=== PATIENT | female | born 1985 | race African-American/Black ===

== ENCOUNTER 2016-07-20 14:33 | Emergency (ER) | payer OTHER ==
[~2016-07-20] VITALS: Ht 162.6 cm; Wt 136.1 kg
[~2016-07-20 14:33] MED LIST: CLINDAMYCIN HY300 MG PO; MACROBID 100 M100 MG PO; MOTRIN800 MG PO
[2016-07-20 14:48] VITALS: BP 130/90
--- NOTE | 2016-07-20 16:03 | ED GENERAL ADULT ---
History of Present Illness General Chief Complaint: Abdominal Pain/Flank Pain Stated Complaint: ABDN PAIN Source: patient Exam Limitations: no limitations Vital Signs & Intake/Output Vital Signs & Intake/Output Vital Signs Date Time Temp Pulse Resp B/P Pulse O2 O2 Flow FiO2 Ox Delivery Rate 07/20 1448 99.7 96 20 130/90 98 Room Air Allergies Coded Allergies: Penicillins (Intermediate, HIVES, TOLD BY MOM NOT TO TAKE 03/07/16) Reconcile Medications Ibuprofen 800 MG TABLET 800 MG PO TID abdominal pain Triage Note: PT TO ED C/O ABD CRAMPING X 2 HOURS. DENIES MENSES. C/O NAUSEA, DENIES V/D. DENIES S/S. : No Patient currently breastfeeds: No HPI: Pt is a 31 yo lady with a PMHx of Chlamydia (In ) presents with complaints of sudden onset abdominal pain right after sexual intercourse. Pt reports that while walking to the bathroom right after having intercourse, she felt a sharp/stabbing pain around his upper and lower abdominal area, pain rated 10/10. She does deny any flank pain, vaginal o pelvic pain. She reports that her sexual partner has not changed, but reports not using condoms. Associated symptoms include nausea but no vomiting, chills or fevers. Pt does not uses OCs. Pt does have a history of irregular menstrual cycle, LMP in May lasting 1-2 days. Pt denies any chest pain,palpitation, dizziness, shortness of breath, dysruia, hematuria. (HENRY MORAN MD) Triage Nurses Notes Reviewed? yes (GLENN THOMPSON MD) Past History Travel History Traveled to [place] past 21 day No Medical History Neurological: NONE EENT: NONE Cardiovascular: NONE Respiratory: NONE Gastrointestinal: NONE Hepatic: NONE Renal: NONE Musculoskeletal: NONE Psychiatric: NONE Endocrine: NONE Blood Disorders: NONE Cancer(s): NONE RUFFLER/Reproductive: NONE Surgical History Surgical History: N Psychosocial History What is your primary language Mosotho Tobacco Use: Never used ETOH Use: denies use Illicit Drug Use: denies illicit drug use (HENRY MORAN MD) Medical History Any Pertinent Medical History? see below for history Family History Hx Contributory? No (GLENN THOMPSON MD) Review of Systems Review of Systems Constitutional: Reports: no symptoms. EENTM: Reports: no symptoms. Respiratory: Reports: no symptoms. Cardiovascular: Reports: no symptoms. GI: Reports: no symptoms. Genitourinary: Reports: see HPI. Musculoskeletal: Reports: no symptoms. Skin: Reports: no symptoms. Neurological/Psychological: Reports: no symptoms. Hematologic/Endocrine: Reports: no symptoms. Immunologic/Allergic: Reports: no symptoms. All Other Systems: Reviewed and Negative (GLENN THOMPSON MD) Physical Exam Physical Exam General Appearance: well developed/nourished, alert Head: atraumatic, normal appearance Eyes: Bilateral: PERRL. Ears, Nose, Throat: normal pharynx Neck: normal inspection Respiratory: normal breath sounds, no respiratory distress Cardiovascular: regular rate/rhythm Gastrointestinal: normal bowel sounds, soft, non-tender, no organomegaly Back: normal inspection, normal range of motion Extremities: normal inspection, normal capillary refill Neurologic/Psych: awake, alert, oriented x 3 Comments: Pelvic exam was unremarkable for any discharge or cervical motion tenderness. (DEAN LOPEZ,HENRY) Physical Exam Peripheral Pulses: 4+ carotid (R), 4+ carotid (L) Reflexes: 2+: bicep (R), bicep (L). Skin: intact, normal color, warm/dry Lymphatic: no anterior cervical [place] Core Measures ACS in differential dx? No CVA/TIA Diagnosis: No Severe Sepsis Present: No Septic Shock Present: No (GLENN THOMPSON MD) Progress Differential Diagnoses I considered the following diagnoses in my evaluation of the patient: ovarian cyst, ovarian torsion,PID, endometriosis,cystitis/pyelonephritis. Plan of Care: Orders Procedure Date/time Status TRICHOMONAS 07/20 1636 Active POTASSIUM HYDROXIDE (ABRAM) 07/20 1636 Active GENITAL CULTURE 07/20 1636 Active CHLAMYDIA-GC DNA PROBE 07/20 1615 Active URINE 07/20 1553 Complete Laboratory Tests 07/20/16 1610: Urine Test NEGATIVE 07/20/16 1542: Total Beta HCG Cancelled Microbiology 07/20 1700 GENITAL: ABRAM Preparation - RECD 07/20 170 GENITAL: Trichomonas Preparation - RECD 07/20 170 GENITAL: Genital Culture - RECD 07/20 170 GENITAL: GC DNA Probe - RECD 07/20 170 GENITAL: Chlamydia DNA Probe (BEAU) - RECD Initial ED EKG: none Comments: Pt pain significantly reduced after Toradol IM 60 mg. (DEAN LOPEZHENRY) Differential Diagnoses I considered the following diagnoses in my evaluation of the patient: (GLENN THOMPSON MD) Departure Departure Time of Disposition: 1718 Disposition: HOME OR SELF CARE Condition: Stable Clinical Impression Primary Impression: Dyspareunia Referrals: [facility] Additional Instructions: Please follow up with the primary care referral within 1 week. Please seek immediate medical attention if your abdominal pain perists longer or gets worse. Departure Forms: Customer Survey General Discharge Information Prescriptions: Current Visit Scripts Ibuprofen 800 MG PO TID #30 Comments Pt offered PCP referral. Registrar informed and inputed [facility] info for call back per [facility]. Pt also given [facility] faculty pamphlet with contact info. (HENRY MORAN MD) Resident Co-Sign Statement Statement: ED Attending supervision documentation- x I saw and evaluated the patient. I have also reviewed all the pertinent lab results and diagnostic results. I agree with the findings and the plan of care as documented in the Resident's documentation. [] I have reviewed the ED Record and agree with the Resident's documentation. [] Additions or exceptions (if any) to the Resident's note and plan are summarized below: [] (GLENN THOMPSON MD) Critical Care Note Critical Care Note Critical Care Time: non-applicable (HENRY MORAN MD)
[2016-07-20] MEDS ORDERED: IBUPROFEN800 M1 PO (17:15)
== END 2016-07-20 17:31 ==
LOC: ERH 14:33
DX: N94.10 Unspecified dyspareunia (principal)
CPT/HCPCS: 87070; 81025; 87147; 87491; 87591; 96372; J1885

== ENCOUNTER 2016-09-11 19:32 | Emergency (ER) | payer OTHER ==
[~2016-09-11 19:32] MED LIST changes: +IBUPROFEN800 M1 PO
[2016-09-11] MEDS ORDERED: ZOFRAN ODT4 M1 SL (21:54)
[2016-09-11] MEDS ORDERED: TESSALON PERLE100 M1 PO (21:54)
[2016-09-11] MEDS ORDERED: AZITHROMYCIN250 M1 PO (21:54)
[2016-09-11] MEDS ORDERED: magic mouthwash PO (21:54)
--- NOTE | 2016-09-11 21:54 | ED INFLUENZA/URI COMPLAINT ---
History of Present Illness General Chief Complaint: General Adult Stated Complaint: "I THINK I HAVE THE FLU" Source: patient Exam Limitations: no limitations Vital Signs & Intake/Output Vital Signs & Intake/Output Vital Signs Date Time Temp Pulse Resp B/P Pulse O2 O2 Flow FiO2 Ox Delivery Rate 09/11 2158 102.5 108 18 129/80 98 Room Air 09/11 2000 101.1 122 26 131/79 97 Allergies Coded Allergies: Penicillins (Intermediate, HIVES, TOLD BY MOM NOT TO TAKE 03/07/16) Triage Note: PER PT FEEL HORRIBLE SINCE LAST NIGHT, SORE THROAT BODY ACHES LAST ES TYLENOL 12 NOON. Triage Nurses Notes Reviewed? yes : No Patient currently breastfeeds: No HPI: This patient is a 31-year-old female who presented to the emergency department today for evaluation of upper respiratory complaints. She reported that a couple weeks ago she started developing a cough and runny nose. She reported that her cough has persisted and is intermittently productive. She denied any hemoptysis. She reported that she has body aches and chills. She also reported sore throat and vomiting 2 today with associated nausea. No abdominal pain, chest pain, or difficulty breathing. She is reporting a headache currently. (SELINA GREWAL,KAYLYNN) Reconcile Medications Azithromycin 250 MG TABLET 1 DP PO AD 2 the first day followed by 1 for days 2-5 Benzonatate (Tessalon Perle) 100 MG CAPSULE 1 CAP PO TID PRN cough Ibuprofen 800 MG TABLET 1 TAB PO TID PRN FEVER Ibuprofen 800 MG TABLET 800 MG PO TID abdominal pain [magic mouthwash] 15 ML ORAL.SUSP 2 TSP PO TID PRN SORE THROAT SWISH AND SWALLOW 1/3 BENADRYL 1/3 LIDOCAINE 1/3 MAALOX Ondansetron (Zofran Odt) 4 MG TAB.RAPDIS 1 TAB SL TID PRN nausea (DONNA LOPEZ,GLENN) Past History Travel History Traveled to [place] past 21 day No Medical History Any Pertinent Medical History? see below for history Neurological: NONE EENT: NONE Cardiovascular: NONE Respiratory: NONE Gastrointestinal: NONE Hepatic: NONE Renal: NONE Musculoskeletal: NONE Psychiatric: NONE Endocrine: NONE Blood Disorders: NONE Cancer(s): NONE PCB DESIGN ENGINEER/Reproductive: NONE Surgical History Surgical History: N Psychosocial History What is your primary language Romansh Tobacco Use: Never used Family History Hx Contributory? No (KAYLYNN MARKS PA-C) Review of Systems Review of Systems Constitutional: Reports: see HPI. EENTM: Reports: see HPI. Respiratory: Reports: see HPI. Cardiovascular: Reports: no symptoms. GI: Reports: see HPI. Genitourinary: Reports: no symptoms. Musculoskeletal: Reports: no symptoms. Skin: Reports: no symptoms. Neurological/Psychological: Reports: no symptoms. All Other Systems: Reviewed and Negative (KAYLYNN MARKS PA-C) Physical Exam Physical Exam Ears, Nose, Throat: nasal congestion, moist mucous membranes, pharyngeal injection with no oral pharyngeal lesions or edema, no tonsillar exudates, no uvular shift, no trismus or drooling Comments: Well-developed well-nourished person in no acute distress HEENT: PERRLA Neck: Supple, no lymphadenopathy Back: Normal gait Cardiovascular: Regular rate and rhythms no murmurs, normal JVP Respiratory: No respiratory distress. Breath sounds clear to auscultation bilaterally Abdomen: Soft, nontender and nondistended Extremity: Normal and equal pulses. Neuro: Alert oriented x3, cranial nerves II through XII grossly intact. Skin: No appreciable rash on exposed skin, skin is warm and dry. Psych: Mood and affect is normal, memory and judgment is normal. Core Measures Severe Sepsis Present: No Septic Shock Present: No (KAYLYNN MARKS PA-C) Progress Differential Diagnosis: influenza, meningitis, neutropenia, otitis, pneumonia, pharyngitis, sinusitis Initial ED EKG: none (KAYLYNN MARKS PA-C) Plan of Care: Orders Procedure Date/time Status THROAT CULTURE W/QUICK STREP 09/11 2049 Active RAPID VIRAL INFLUENZA A 09/11 2001 Complete Microbiology 09/12 1999 NASOPHARYN: Influenza Virus A & B Rapid Smear - COMP Departure Departure Disposition: HOME OR SELF CARE Condition: Stable Clinical Impression Primary Impression: Viral syndrome Referrals: PATIENT HAS NO PRIMARY CARE DR (PCP/Family) Additional Instructions: Take Zofran as prescribed for nausea. Take Tessalon Perles as prescribed for cough. Use Magic mouthwash as directed: Swish and swallow. Take antibiotic as prescribed and for its full duration. Please return to the emergency department for any worsening symptoms or concerns. Rest and be sure to stay hydrated. Departure Forms: Customer Survey General Discharge Information Prescriptions: Current Visit Scripts Ondansetron (Zofran Odt) 1 TAB SL TID PRN nausea #10 TAB Benzonatate (Tessalon Perle) 1 CAP PO TID PRN cough #12 CAP Azithromycin 1 DP PO AD #6 TAB 2 the first day followed by 1 for days 2-5 [magic mouthwash] 2 TSP PO TID PRN SORE THROAT #150 ML SWISH AND SWALLOW 1/3 BENADRYL 1/3 LIDOCAINE 1/3 MAALOX Ibuprofen 1 TAB PO TID PRN FEVER #30 TAB (SELINA GREWAL,KAYLYNN) PA/PLANT MECHANIC Co-Sign Statement Statement: ED Attending supervision documentation- [] I saw and evaluated the patient. I have also reviewed all the pertinent lab results and diagnostic results. I agree with the findings and the plan of care as documented in the PA's/PLANT MECHANIC's documentation. x I have reviewed the ED Record and agree with the PA's/PLANT MECHANIC's documentation. [] Additions or exceptions (if any) to the PAs/PLANT MECHANIC's note and plan are summarized below: [] (DONNA LOPEZ,GLENN)
[2016-09-11 21:59] VITALS: BP 129/80
[2016-09-11] MEDS ORDERED: IBUPROFEN800 M1 PO (22:06)
== END 2016-09-11 22:24 ==
LOC: ERH 19:32
DX: B34.9 Viral infection, unspecified (principal)
CPT/HCPCS: 87804; 87804-59; J3101

== ENCOUNTER 2016-12-20 14:44 | Emergency (ER) | payer OTHER ==
[~2016-12-20] VITALS: Ht 162.6 cm; Wt 136.1 kg
[~2016-12-20 14:44] MED LIST changes: +AZITHROMYCIN250 M1 PO; +TESSALON PERLE100 M1 PO; +ZOFRAN ODT4 M1 SL; +magic mouthwash PO
--- NOTE | 2016-12-20 16:20 | ED UPPER/LOWER EXTREMITY COMPL ---
History of Present Illness General Chief Complaint: Lower Extremity Injury Stated Complaint: LEFT ANKLE PAIN Source: patient Exam Limitations: no limitations Vital Signs & Intake/Output Vital Signs & Intake/Output Vital Signs Date Time Temp Pulse Resp B/P B/P Pulse O2 O2 Flow FiO2 Mean Ox Delivery Rate 12/20 1640 88 148/90 12/20 1450 98.7 90 18 147/81 98 Room Air Allergies Coded Allergies: Penicillins (Intermediate, HIVES, TOLD BY MOM NOT TO TAKE 03/07/16) Reconcile Medications Azithromycin 250 MG TABLET 1 DP PO AD 2 the first day followed by 1 for days 2-5 Benzonatate (Tessalon Perle) 100 MG CAPSULE 1 CAP PO TID PRN cough Ibuprofen 800 MG TABLET 1 TAB PO TID PRN pain Ibuprofen 800 MG TABLET 1 TAB PO TID PRN FEVER Ibuprofen 800 MG TABLET 800 MG PO TID abdominal pain [magic mouthwash] 15 ML ORAL.SUSP 2 TSP PO TID PRN SORE THROAT SWISH AND SWALLOW 1/3 BENADRYL 1/3 LIDOCAINE 1/3 MAALOX Ondansetron (Zofran Odt) 4 MG TAB.RAPDIS 1 TAB SL TID PRN nausea Oxycodone HCl/Acetaminophen (Percocet 5-325 MG Tablet) 5 MG-325 MG TABLET 1 TAB PO BID PRN pain Triage Note: PT TO TRIAGE WITH C/O LEFT ANKLE/MOODY PAIN 10/10 S/P TRIPPED AND FELL LAST NIGHT. HX OF LEFT LE FRACTURE AND SURGERY 4 YEARS AGO. ICE PACK PROVIDED. PT REFUSED PAIN MEDS IN TRIAGE. Triage Nurses Notes Reviewed? yes Onset: Abrupt Duration: day(s): Timing: yesterday Severity: severe Severity Numbers: 10 Pain/Injury Location: Left: Knee, Ankle. Method of Injury: fall Modifying Factors: Worsens With: movement. : No Patient currently breastfeeds: No HPI: 31yo female presents to ED complaining of left ankle pain s/p fall yesterday. Patient states she tripped and fell forward off porch with most of her weight landing on her left ankle. Her pain is described as severe, worse with movement, 10/10, patient in walking with a limp and requires assistance for ambulation. She also complains of moderate pain at her left anterior knee. 4 years ago the patient had orthopedic surgery and a plate put in her left ankle after breaking it from a fall while roller blading. She does not recall the name of her orthopedist. She took 800mg of Motrin last night which did not improve her pain. She denies head trauma, loss of conciousness, syncope, lightheadedness, bleeding , skin changes, paresthesias. (LISSET VALE PA-C) Past History Travel History Traveled to [place] past 21 day No Medical History Any Pertinent Medical History? see below for history Neurological: NONE EENT: NONE Cardiovascular: NONE Respiratory: NONE Gastrointestinal: NONE Hepatic: NONE Renal: NONE Musculoskeletal: DISPLACED DISTAL FIBULAR FRACTURE LEFT 2010 surgery Psychiatric: NONE Endocrine: NONE Blood Disorders: NONE Cancer(s): NONE REHABILITATION AIDE/SCHEDULER/Reproductive: NONE Surgical History Surgical History: ORIF LEFT ANKLE 2010 Psychosocial History What is your primary language Ugandan Tobacco Use: Never used Family History Hx Contributory? No (LISSET VALE PA-C) Review of Systems Review of Systems Constitutional: Reports: no symptoms. EENTM: Reports: no symptoms. Respiratory: Reports: no symptoms. Cardiovascular: Reports: no symptoms. Gastrointestinal/Abdominal: Reports: no symptoms. Genitourinary: Reports: no symptoms. Musculoskeletal: Reports: see HPI. Skin: Reports: no symptoms. Neurological/Psychological: Reports: no symptoms. Hematologic/Endocrine: Reports: no symptoms. Immunological: Reports: no symptoms. All Other Systems: Reviewed and Negative (LISSET VALE PA-C) Physical Exam Physical Exam General Appearance: well developed/nourished, no apparent distress, alert, awake Head: atraumatic, normal appearance Eyes: Bilateral: normal appearance. Ears, Nose, Throat: hearing grossly normal Neck: normal inspection, supple, full range of motion Cardiovascular/Respiratory: no respiratory distress Peripheral Pulses: 2+ dorsalis pedis (R), 2+ dorsalis pedis (L) Back: normal inspection, normal range of motion Leg Left: normal range of motion, normal inspection Leg Right: normal range of motion, normal inspection Foot Left: TENDERNESS AT ANTERIOR, POSTERIOR, MEDIAL, AND LATERAL LEFT ANKLE, LIMITED ROM WITH ANKLE INVERSION AND EVERSION DUE TO PAIN, NO ANKLE JOINT SWELLING OR ECCHYMOSIS Foot Right: normal inspection, normal range of motion Neurologic/Tendon: normal sensation, normal tendon functions, no pulse deficit Skin: intact, normal color, warm/dry (LISSET VALE PA-C) Progress Differential Diagnosis: cellulitis, dislocation, fracture, sprain, tendon injury Plan of Care: Orders Procedure Date/time Status Durable Medical Equipment 12/20 1816 Active URINE 12/20 1523 Complete Laboratory Tests 12/20/16 1605: Urine Test NEGATIVE Patient has history of displaced distal fibular ankle fracture with syndesmosis ligament disruption requiring ORIF by Dr. Ram on 08/10/09. Xray shows Fracture of the syndesmotic screw at the level of the distal left tibia as well as widening of the medial malleolus with possible underlying injury to the deltoid ligaments. Patient was discussed with Dr. Botello. Waiting for ortho to consult. 17:54 - Spoke with orthopedic Dr. Johnson. Recommend splinting and pain control, hardware appears stable on xray. Patient requesting pain medication. Patient placed in posterior leg splint and will follow up with ortho this week. She was given a short course of percocet for breakthrough pain. She was educated for non weight bearing until ortho follow up and was able to ambulate with crutches prior to her depature. The patient is in agreement with plan of care. (KAVIN GREWAL,LISSET) Diagnostic Imaging: Viewed by Me: Radiology Read. Discussed w/RAD: Radiology Read. Radiology Impression: PATIENT: FRANSICO AGUIAR PRESENT AGE: 31 PATIENT ACCOUNT NO: [id number] : 86 LOCATION: [facility] ORDERING PHYSICIAN: LISSET VALE PA-C SERVICE DATE: 12/20/16-1500 EXAM TYPE: RAD - XRY-ANKLE 3 OR MORE VIEWS L; [id number], LEFT EXAMINATION: XR TIBIA AND FIBULA, LEFT XR ANKLE, LEFT CLINICAL INFORMATION: Left ankle and moody injury , pain, swelling COMPARISON: 07/28/2009, 07/29/2009 TECHNIQUE: AP and lateral views of the left tibia and fibula were obtained. Frontal, oblique and lateral views of the left ankle were obtained FINDINGS: Left tibia, fibula: Distal left fibular hardware is partially imaged. The visualized portions of the distal left fibula and tibia appear intact. No fracture or subluxation. Limited views of the left knee are unremarkable. There is no significant joint effusion. Left ankle: The patient is status post bilateral fixation plates along the distal left fibula with associated cortical screws transfixing a previous oblique left distal fibular fracture. There is fracture of the mid body of the syndesmotic screw at the level of the distal tibia. The temporal nature of this finding is unknown. The talar dome appears intact. There are multiple small well-corticated fragments of bone along the medial malleolus which appears relatively prominent compared to the lateral malleolus. This could be projectional. There is some soft tissue swelling overlying the medial and lateral malleolus. Review of the lateral view demonstrates proliferative bone at the distal aspect of the distal tibia consistent with a history provided of prior injury. There are prominent enthesophytes along the superior and inferior aspects of the calcaneus. IMPRESSION: 1. Fracture of the syndesmotic screw at the level of the distal left tibia. 2. The lateral fixation plate along the lateral aspect of the distal left fibula appears otherwise intact including the smaller associated cortical screws. 3. Relative widening of the medial malleolus which could suggest underlying injury to the deltoid ligaments. 4. Degenerative changes surrounding the tibiotalar joint consistent with a history of prior trauma. DICTATED BY: OLVIN HOGAN MD DATE/TIME DICTATED:12/20/161648 GINNING OPERATOR:ANUPAMA DATE/TIME TRANSCRIBED:12/20/161648 CONFIDENTIAL, DO NOT COPY WITHOUT APPROPRIATE AUTHORIZATION. <Electronically signed in Other Vendor System> SIGNED BY: OLVIN HOGAN MD 12/20/161657, PATIENT: FRANSICO AGUIAR PRESENT AGE: 31 PATIENT ACCOUNT NO: [id number] : 86 LOCATION: [facility] ORDERING PHYSICIAN: LISSET VALE PA-C SERVICE DATE: 12/20/161500 EXAM TYPE: RAD - XRY-ANKLE 3 OR MORE VIEWS L; [id number], LEFT EXAMINATION: XR TIBIA AND FIBULA, LEFT XR ANKLE, LEFT CLINICAL INFORMATION: Left ankle and moody injury, pain, swelling COMPARISON: 07/28/2009, 07/29/2009 TECHNIQUE: AP and lateral views of the left tibia and fibula were obtained. Frontal, oblique and lateral views of the left ankle were obtained FINDINGS: Left tibia, fibula: Distal left fibular hardware is partially imaged. The visualized portions of the distal left fibula and tibia appear intact. No fracture or subluxation. Limited views of the left knee are unremarkable. There is no significant joint effusion. Left ankle: The patient is status post bilateral fixation plates along the distal left fibula with associated cortical screws transfixing a previous oblique left distal fibular fracture. There is fracture of the mid body of the syndesmotic screw at the level of the distal tibia. The temporal nature of this finding is unknown. The talar dome appears intact. There are multiple small well-corticated fragments of bone along the medial malleolus which appears relatively prominent compared to the lateral malleolus. This could be projectional. There is some soft tissue swelling overlying the medial and lateral malleolus. Review of the lateral view demonstrates proliferative bone at the distal aspect of the distal tibia consistent with a history provided of prior injury. There are prominent enthesophytes along the superior and inferior aspects of the calcaneus. IMPRESSION: 1. Fracture of the syndesmotic screw at the level of the distal left tibia. 2. The lateral fixation plate along the lateral aspect of the distal left fibula appears otherwise intact including the smaller associated cortical screws. 3. Relative widening of the medial malleolus which could suggest underlying injury to the deltoid ligaments. 4. Degenerative changes surrounding the tibiotalar joint consistent with a history of prior trauma. DICTATED BY: OLVIN HOGAN MD DATE/TIME DICTATED:12/20/161648 GINNING OPERATOR:ANUPAMA DATE/TIME TRANSCRIBED:12/20/161648 CONFIDENTIAL, DO NOT COPY WITHOUT APPROPRIATE AUTHORIZATION. <Electronically signed in Other Vendor System> SIGNED BY: OLVIN HOGAN MD 12/20/16 7142 (LISSTE VALE PA-C) Departure Departure Disposition: HOME OR SELF CARE Condition: Stable Clinical Impression Primary Impression: Sprain of deltoid ligament of left ankle, initial encounter Secondary Impressions: Internal fixation device (pin, ramin, or screw) mechanical complication Referrals: SITA LOPEZ,KIANNA PATIENT HAS NO PRIMARY CARE DR (PCP/Family) Additional Instructions: Follow up with orthopedic office this week. Call to make an appointment. Leave splint on until your ortho appointment. Take percocet for breakthrough pain. This is a narcotic, can be highly addictive. Do not drink alcohol or drive while on this medication. Rest and apply ice. Return with worsening symptoms or concerns. Departure Forms: Customer Survey General Discharge Information Prescriptions: Current Visit Scripts Oxycodone HCl/Acetaminophen (Percocet 5-325 MG Tablet) 1 TAB PO BID PRN pain #8 TAB Ibuprofen 1 TAB PO TID PRN pain #15 TAB (LISSET VALE PA-C) PA/EMERGENCY MEDICINE SPECIALIST Co-Sign Statement Statement: ED Attending supervision documentation- [] I saw and evaluated the patient. I have also reviewed all the pertinent lab results and diagnostic results. I agree with the findings and the plan of care as documented in the PA's/EMERGENCY MEDICINE SPECIALIST's documentation. [X] I have reviewed the ED Record and agree with the PA's/EMERGENCY MEDICINE SPECIALIST's documentation. [] Additions or exceptions (if any) to the PAs/EMERGENCY MEDICINE SPECIALIST's note and plan are summarized below: [] (SORAYA LOPEZ,HORACE) Procedures Splinting Location: left leg Manual Alignment Performed: No Hand-Made Type: orthoglass Splint: posterior leg Splint Applied By: splint applied by me Pre-Proc Neuro Vasc Exam: normal Post-Proc Neuro Vasc Exam: normal Progress: Patient tolerated well, feels comfortable with splint (LISSET VALE PA-C)
[2016-12-20 16:40] VITALS: BP 148/90
--- NOTE | 2016-12-20 16:58 | RADIOLOGY REPORT ---
EXAMINATION: XR TIBIA AND FIBULA, LEFT XR ANKLE, LEFT CLINICAL INFORMATION: Left ankle and moody injury, pain, swelling COMPARISON: 07/28/2009, 07/29/2009 TECHNIQUE: AP and lateral views of the left tibia and fibula were obtained. Frontal, oblique and lateral views of the left ankle were obtained FINDINGS: Left tibia, fibula: Distal left fibular hardware is partially imaged. The visualized portions of the distal left fibula and tibia appear intact. No fracture or subluxation. Limited views of the left knee are unremarkable. There is no significant joint effusion. Left ankle: The patient is status post bilateral fixation plates along the distal left fibula with associated cortical screws transfixing a previous oblique left distal fibular fracture. There is fracture of the mid body of the syndesmotic screw at the level of the distal tibia. The temporal nature of this finding is unknown. The talar dome appears intact. There are multiple small well-corticated fragments of bone along the medial malleolus which appears relatively prominent compared to the lateral malleolus. This could be projectional. There is some soft tissue swelling overlying the medial and lateral malleolus. Review of the lateral view demonstrates proliferative bone at the distal aspect of the distal tibia consistent with a history provided of prior injury. There are prominent enthesophytes along the superior and inferior aspects of the calcaneus. IMPRESSION: 1. Fracture of the syndesmotic screw at the level of the distal left tibia. 2. The lateral fixation plate along the lateral aspect of the distal left fibula appears otherwise intact including the smaller associated cortical screws. 3. Relative widening of the medial malleolus which could suggest underlying injury to the deltoid ligaments. 4. Degenerative changes surrounding the tibiotalar joint consistent with a history of prior trauma.
[2016-12-20] MEDS ORDERED: IBUPROFEN800 M1 PO (18:15)
[2016-12-20] MEDS ORDERED: PERCOCET 5-3251 EACH PO (18:15)
== END 2016-12-20 18:27 ==
LOC: ERH 14:44
DX: S93.422A Sprain of deltoid ligament of left ankle, initial encounter (principal); W18.09XA Striking against other object with subsequent fall, initial encounter; Y92.9 Unspecified place or not applicable; Y93.9 Activity, unspecified
CPT/HCPCS: 73590-LT; 73610-LT; 81025

== ENCOUNTER 2017-08-27 17:50 | Emergency (ER) | payer OTHER ==
[~2017-08-27] VITALS: Ht 162.6 cm; Wt 138.3 kg
[~2017-08-27 17:50] MED LIST changes: +PERCOCET 5-3251 EACH PO
[2017-08-27 18:31] VITALS: BP 149/86
[2017-08-27 18:52] LABS: ABSOLUTE BASOPHIL COUNT 0 /CUMM (0.0-0.2); ABSOLUTE EOSINOPHIL COUNT 0.1 /CUMM (0.0-0.7); ABSOLUTE GRANULOCYTE CT 5.3 /CUMM (1.4-6.5); ABSOLUTE LYMPH COUNT 2.8 /CUMM (1.2-3.4); ABSOLUTE MONOCYTE COUNT 0.4 /CUMM (0.10-0.60); BASOPHIL % 0.5 % (0.0-2.0); EOSINOPHIL % 1.1 % (0-5); GRANULOCYTE % 61.1 % (42.2-75.2); HEMATOCRIT 40.6 % (37-47); MEAN CORPUSCULAR HGB 27.5 PG (27.0-31.0); MEAN CORPUSCULAR HGB CONC 33.2 G/DL (33.0-37.0); MEAN CORPUSCULAR VOLUME 82.9 FL (81.0-99.0); MEAN PLATELET VOLUME 7.8 FL (7.4-10.4); PLATELET COUNT 305 /CUMM (130-400); RBC DISTRIBUTION WIDTH 13.7 % (11.5-14.5); WHITE BLOOD CELL COUNT 8.7 /CUMM (4.8-10.8)
== END 2017-08-27 23:27 | disposition admitted as inpatient to this hospital (09) ==
LOC: ERH 17:50
PROVIDERS: Emergency Medicine
DX: R10.12 Left upper quadrant pain (principal); R51 Headache; R11.0 Nausea
CPT/HCPCS: 81003; 99281; J3101

== ENCOUNTER 2018-02-09 19:40 | Emergency (ER) | payer OTHER ==
[~2018-02-09] VITALS: Ht 162.6 cm; Wt 136.1 kg
--- NOTE | 2018-02-09 20:48 | ED GENERAL ADULT ---
History of Present Illness General Chief Complaint: General Adult Stated Complaint: ELEVATED BP PER PT,ABDOMINAL PAIN Source: patient Exam Limitations: no limitations Vital Signs & Intake/Output Vital Signs & Intake/Output Vital Signs Date Time Temp Pulse Resp B/P B/P Pulse O2 O2 Flow FiO2 Mean Ox Delivery Rate 02/096 98.5 92 18 144/79 99 Room Air 02/093 92 20 148/82 100 Room Air 02/09 2131 99 Room Air 02/10 2000 98.4 99 18 156/96 99 Room Air Allergies Coded Allergies: Penicillins (Intermediate, HIVES, TOLD BY MOM NOT TO TAKE 08/27/17) Reconcile Medications Azithromycin 250 MG TABLET 1 DP PO AD 2 the first day followed by 1 for days 2-5 Benzonatate (Tessalon Perle) 100 MG CAPSULE 1 CAP PO TID PRN cough Ibuprofen 800 MG TABLET 1 TAB PO TID PRN pain Ibuprofen 800 MG TABLET 1 TAB PO TID PRN FEVER Ibuprofen 800 MG TABLET 800 MG PO TID abdominal pain [magic mouthwash] 15 ML ORAL.SUSP 2 TSP PO TID PRN SORE THROAT SWISH AND SWALLOW 1/3 BENADRYL 1/3 LIDOCAINE 1/3 MAALOX Nitrofurantoin Macrocrystal (Macrodantin) 100 MG CAPSULE 1 CAP PO BID UTI Ondansetron (Zofran Odt) 4 MG TAB.RAPDIS 1 TAB SL TID PRN nausea Oxycodone HCl/Acetaminophen (Percocet 5-325 MG Tablet) 5 MG-325 MG TABLET 1 TAB PO BID PRN pain Triage Note: 32F REPORTS SHE WENT TO DR TODAY AND THEY TOLD HER HER BP WAS HIGH. 156/96 IN TRIAGE. STATES SHE JUST DOESNT FEEL GOOD. C/O LOW PELVIC PAIN. IS TAKING A MEDICATION FOR PAIN S/P fall AND CONCERNED THIS COULD BE WHY SHE FEELS BAD. DENIES SYMPTOMS Triage Nurses Notes Reviewed? yes Onset: Abrupt Duration: hour(s): Timing: single episode today : No Patient currently breastfeeds: No HPI: 32 year old female presents to the emergency department for abdominal pain, palpatations and hypertension. She states she just does not feel right. Pt was told at the urgent care that her blood pressure was high. She stated she vomitted Thursday and that was the onset of the abdominal pain. At which point she started experiencing diarrhea. She denies burning with urination or vaginal discharge. Past History Travel History Traveled to [place] past 21 day No Medical History Any Pertinent Medical History? 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 No Review of Systems Review of Systems Constitutional: Reports: see HPI. Denies: fever. EENTM: Reports: no symptoms. Denies: double vision, visual changes. Respiratory: Reports: no symptoms. Denies: short of breath. Cardiovascular: Reports: see HPI, palpitations. Denies: chest pain. GI: Reports: see HPI, abdominal pain, diarrhea, vomiting. Genitourinary: Reports: no symptoms. Denies: discharge, dysuria, frequency. Musculoskeletal: Reports: no symptoms. Skin: Reports: no symptoms. Neurological/Psychological: Reports: see HPI, anxiety. Hematologic/Endocrine: Reports: no symptoms. Immunologic/Allergic: Reports: no symptoms. All Other Systems: Reviewed and Negative Physical Exam Physical Exam General Appearance: well developed/nourished, alert, awake, anxious, mild distress Head: atraumatic, normal appearance Eyes: Bilateral: normal appearance, PERRL, EOMI. Ears, Nose, Throat: normal ENT inspection Neck: normal inspection, full range of motion Respiratory: chest non-tender, lungs clear Cardiovascular: regular rate/rhythm Peripheral Pulses: 4+ radial (R), 4+ radial (L) Gastrointestinal: soft, non-tender Back: normal range of motion Extremities: normal inspection, normal range of motion Neurologic/Psych: no motor/sensory deficits, awake, alert, oriented x 3 Skin: intact, normal color, warm/dry Core Measures ACS in differential dx? No CVA/TIA Diagnosis: No Sepsis Present: No Sepsis Focused Exam Completed? No Progress Differential Diagnoses I considered the following diagnoses in my evaluation of the patient: [UTI, cervicitis, kidney stone, pulmonary embolism, electrolyte derangement, adverse drug reaction] Plan of Care: Orders Procedure Date/time Status EKG 02/10 2144 Active Add-on Test (ER Only) 02/09 2107 Active TROPONIN LEVEL 02/09 2101 Complete LIPASE 02/10 2016 Complete LACTIC ACID 02/10 2016 Complete COMPREHENSIVE METABOLIC PANEL 02/10 2016 Complete CBC WITHOUT DIFFERENTIAL 02/10 2016 Complete URINE 02/09 2002 Complete URINALYSIS 02/09 2002 Complete Laboratory Tests 02/09/18 2316: Lactic Acid Cancelled 02/09/18 2101: Anion Gap 8, Estimated GFR > 60, BUN/Creatinine Ratio 12.0, Glucose 86, Lactic Acid 1.1, Calcium 9.6, Total Bilirubin 0.5, AST 25, ALT 26, Alkaline Phosphatase 62, Troponin I < 0.01, Total Protein 8.0, Albumin 4.5, Globulin 3.5, Albumin/ Globulin Ratio 1.3, Lipase 137, CBC w Diff NO MAN DIFF REQ, RBC 5.00, MCV 83.1, MCH 28.2, MCHC 33.9, RDW 13.9, MPV 7.9, Gran % 67.1, Lymphocytes % 23.8, Monocytes % 7.5, Eosinophils % 1.3, Basophils % 0.3, Absolute Granulocytes 5.7, Absolute Lymphocytes 2.0, Absolute Monocytes 0.6, Absolute Eosinophils 0.1, Absolute Basophils 0 02/09/182008: Urinalysis LIGHT H, Urine Color YEL, Urine Clarity CLEAR, Urine pH 6.0, Ur Specific Lucas >= 1.030, Urine Protein NEG, Urine Ketones TRACE H, Urine Nitrite NEG, Urine Bilirubin NEG, Urine Urobilinogen 0.2, Ur Leukocyte Esterase TRACE H, Ur Microscopic SEDIMENT EXAMINED, Urine RBC RARE, Urine WBC 3-5 H, Ur Epithelial Cells MOD H, Urine Bacteria FEW H, Urine Mucus FEW, Urine Hemoglobin NEG, Urine Glucose NEG, Urine Test NEGATIVE Initial ED EKG: NSR, nonspecific ST T wave chg, PENDING Prior EKG: unchanged Departure Departure Disposition: STILL A PATIENT Condition: Stable Clinical Impression Primary Impression: Palpitations Secondary Impressions: Adverse drug reaction Referrals: Patient Has No Primary Care Dr (PCP/Family) Departure Forms: Customer Survey General Discharge Information Prescriptions: Current Visit Scripts Nitrofurantoin Macrocrystal (Macrodantin) 1 CAP PO BID #[id number] CAP Comments The patient states she had a slip and fall and was seen at [facility] and put on Percocet. This was for back pain. She also complains of suprapubic abdominal pain her abdomen is soft and nontender. She denies any vaginal discharge. PERC SCORE AND WELLS SCORE LOW RISK. 02/09/18 Patient's labs were unremarkable. Urine analysis shows pyuria. She is asymptomatic now on reevaluation. EKG was normal. She will follow up with [facility] Critical Care Note Critical Care Note Critical Care Time: non-applicable
[2018-02-09 21:14] LABS: ABSOLUTE BASOPHIL COUNT 0 /CUMM (0.0-0.2); ABSOLUTE EOSINOPHIL COUNT 0.1 /CUMM (0.0-0.7); ABSOLUTE GRANULOCYTE CT 5.7 /CUMM (1.4-6.5); ABSOLUTE MONOCYTE COUNT 0.6 /CUMM (0.10-0.60); BASOPHIL % 0.3 % (0.0-2.0); EOSINOPHIL % 1.3 % (0-5); GRANULOCYTE % 67.1 % (42.2-75.2); HEMATOCRIT 41.5 % (37-47); MEAN CORPUSCULAR HGB 28.2 PG (27.0-31.0); MEAN CORPUSCULAR HGB CONC 33.9 G/DL (33.0-37.0); MEAN CORPUSCULAR VOLUME 83.1 FL (81.0-99.0); MEAN PLATELET VOLUME 7.9 FL (7.4-10.4); PLATELET COUNT 300 /CUMM (130-400); RBC DISTRIBUTION WIDTH 13.9 % (11.5-14.5); WHITE BLOOD CELL COUNT 8.5 /CUMM (4.8-10.8)
[2018-02-09] MEDS ORDERED: MACRODANTIN100 M1 PO (22:42)
[2018-02-09 22:46] VITALS: BP 144/79
== END 2018-02-09 22:47 ==
LOC: ERH 19:40
PROVIDERS: Physician Assistant
DX: R00.2 Palpitations (principal); R10.2 Pelvic and perineal pain
CPT/HCPCS: 81001; 81025; 93005; 93010